=== PATIENT | female | born 1955 | race African-American/Black ===

== ENCOUNTER 2021-07-30 00:24 | Inpatient (IN) | payer MEDICARE, OTHER ==
[~2021-07-30] VITALS: Ht 170.2 cm; Wt 33.1 kg
[2021-07-30 02:37] LABS: INR 1.23 (0.9-1.15); Partial Thromboplastin Time 42.6 sec (23.6-33.0)
[2021-07-30 02:45] LABS: Albumin 1.7 g/dL (3.4-5.0); Anion Gap 21 (5-15); Calcium 7.4 mg/dL (8.5-10.1); Carbon Dioxide 12 mmol/L (21-32); Chloride 101 mmol/L (98-107); Glucose 239 mg/dL (74-106); Potassium 5.2 mmol/L (3.5-5.1); Sodium 134 mmol/L (136-145)
[2021-07-30 02:49] LABS: Alanine Aminotransferase 270 U/L (13-56); Aspartate Aminotransferase 309 U/L (15-37); BUN/Creatinine Ratio 29.7; Blood Alcohol < 3.0 mg/dL (0-5); GFR African American 7 mL/min; GFR Non-African American 6 mL/min; Total Protein 5.3 g/dL (6.4-8.2)
[2021-07-30 03:31] LABS: Hematocrit 12.4 % (36.0-46.0); Mean Corpuscular Hemoglobin 34.9 pg (28.0-32.0); Mean Corpuscular Volume 108.9 fL (80.0-100.0); Red Blood Cells 1.13 10^6/uL (4.0-5.20); White Blood Cell 7.4 10^3/uL (4.4-10.8)
[2021-07-30 03:46] LABS: Alkaline Phosphatase 2651 U/L (45-117)
[2021-07-30 03:47] LABS: Bilirubin, Total 24.7 mg/dL (0.2-1.0)
[2021-07-30 03:50] LABS: Blood Urea Nitrogen 222 mg/dL (7-18)
[2021-07-30 03:51] LABS: Red Cell Distribution Width 21.8 % (11.8-14.3)
[2021-07-30 03:53] LABS: Basophils % (manual) 0 (0.0-2.0); Blast Cells 0; Eosinophils % (manual) 0 (0-7); Metamyelocytes % 0; Myelocytes % 0; Promyelocytes % 0; Reactive Lymphocytes 0
[2021-07-30] MEDS ORDERED: ACETAMINOPHEN 650 MG RECT SUPP PR PRN (06:00)
[2021-07-30] MEDS ORDERED: HYDROcodone-ACET 5/325MG TAB PO PRN (06:00)
[2021-07-30] MEDS ORDERED: DEXTROSE (50%) 50ML SYRG IV PRN ×2 (06:00→12:30)
[2021-07-30] MEDS: LACTULOSE 10g/15ml SOLN PR SCH ×2 (06:00→12:00)
[2021-07-30] MEDS ORDERED: MORPHINE SULFATE 4 MG/ML SYR/VIAL IV PRN (06:00)
[2021-07-30] MEDS ORDERED: SODIUM CHLORIDE 0.9% 1,000 ML IV SCH ×2 (06:00→12:30)
[2021-07-30] MEDS ORDERED: ONDANSETRON HCL 4 MG/2 ML VIAL IV PRN ×2 (06:00→12:30)
[2021-07-30 06:29] LABS: Alanine Aminotransferase 262 U/L (13-56); Albumin 1.7 g/dL (3.4-5.0); Anion Gap 20 (5-15); Calcium 7.4 mg/dL (8.5-10.1); Carbon Dioxide 12 mmol/L (21-32); Chloride 103 mmol/L (98-107); Glucose 250 mg/dL (74-106); Potassium 5.1 mmol/L (3.5-5.1); Sodium 135 mmol/L (136-145)
[2021-07-30 06:30] LABS: Hematocrit 13.2 % (36.0-46.0); Mean Corpuscular Hemoglobin 35.6 pg (28.0-32.0); Mean Corpuscular Hgb Conc. 30.9 g/dL (32.0-36.0); Mean Corpuscular Volume 114.9 fL (80.0-100.0); Red Blood Cells 1.15 10^6/uL (4.0-5.20); White Blood Cell 7.4 10^3/uL (4.4-10.8)
[2021-07-30 06:32] LABS: Aspartate Aminotransferase 285 U/L (15-37); BUN/Creatinine Ratio 28.6; GFR African American 7 mL/min; GFR Non-African American 6 mL/min; Total Protein 5.2 g/dL (6.4-8.2)
[2021-07-30 06:47] LABS: Red Cell Distribution Width 22.6 % (11.8-14.3)
[2021-07-30 07:01] LABS: Alkaline Phosphatase > 2330 U/L (45-117); Bilirubin, Total 24.5 mg/dL (0.2-1.0)
[2021-07-30 07:07] LABS: Blood Urea Nitrogen 216 mg/dL (7-18)
[2021-07-30 07:18] LABS: Basophils % (manual) 0 (0.0-2.0); Blast Cells 0; Eosinophils % (manual) 0 (0-7); Hemoglobin 4.1 g/dL (12.2-16.2); Metamyelocytes % 0; Myelocytes % 0; Promyelocytes % 0; Reactive Lymphocytes 0
[2021-07-30 08:11] LABS: Band Neutrophils % (manual) 3; Lymphocytes % (manual) 6 (10.0-50.0); Monocytes % (manual) 2 (0-12)
[2021-07-30 08:45] VITALS: BP 109/55
[2021-07-30 09:00] VITALS: BP 120/63
[2021-07-30 09:11] LABS: Urine Bacteria FEW /hpf (None Seen); Urine Blood 1+ /uL (Negative); Urine Mucus MANY (None Seen); Urine Specific Gravity 1.016 (1.001-1.035); Urine WBC 1159 /hpf (0 - 5); Urine WBC Clumps PRESENT /hpf (None Seen)
[2021-07-30 09:25] LABS: Amphetamine Screen, Urine NEGATIVE (NEGATIVE); Barbiturate Scree,Urine NEGATIVE (NEGATIVE); Benzodiazephine Screen, Urine NEGATIVE (NEGATIVE); Cannabinoid Screen, Urine NEGATIVE (NEGATIVE); Cocaine Screen, Urine NEGATIVE (NEGATIVE); Opiate Scree,Urine NEGATIVE (NEGATIVE); Phencyclidine Screen, Urine NEGATIVE (NEGATIVE)
[2021-07-30 09:31] LABS: Alcohol, Urine < 3.0 mg/dL (0-10)
[2021-07-30] MEDS ORDERED: FAMOTIDINE (10MG/ML) 2ML VL IV SCH (10:00)
[2021-07-30] MEDS: ACCU-CHEK COMFORT CURVE STRIP VI SCH ×4 (10:15→22:00)
[2021-07-30] MEDS: InsuLIN REG 1unit/0.01ml Soln (100units/ml) SC SCH ×4 (10:23→22:00)
[2021-07-30] MEDS: FAMOTIDINE (10MG/ML) 2ML VL IV SCH (10:23)
[2021-07-30 10:28] VITALS: BP 114/59
[2021-07-30 11:43] LABS: Hemoglobin 7.6 g/dL (12.2-16.2); White Blood Cell 6.5 10^3/uL (4.4-10.8)
[2021-07-30 11:45] LABS: Hematocrit 22.4 % (36.0-46.0); Mean Corpuscular Hemoglobin 32.9 pg (28.0-32.0); Mean Corpuscular Volume 96.8 fL (80.0-100.0); Red Blood Cells 2.31 10^6/uL (4.0-5.20); Red Cell Distribution Width 19.7 % (11.8-14.3)
[2021-07-30 11:56] LABS: Band Neutrophils % (manual) 1; Lymphocytes % (manual) 5 (10.0-50.0); Monocytes % (manual) 4 (0-12)
[2021-07-30 11:57] LABS: Basophils % (manual) 0 (0.0-2.0); Blast Cells 0; Eosinophils % (manual) 0 (0-7); Metamyelocytes % 0; Myelocytes % 0; Promyelocytes % 0; Reactive Lymphocytes 0
[2021-07-30 12:04] LABS: Chloride 105 mmol/L (98-107); Potassium 4.8 mmol/L (3.5-5.1); Sodium 135 mmol/L (136-145)
[2021-07-30 12:14] LABS: Alanine Aminotransferase 250 U/L (13-56); Albumin 1.7 g/dL (3.4-5.0); Anion Gap 19 (5-15); Aspartate Aminotransferase 273 U/L (15-37); BUN/Creatinine Ratio 29.1; Bilirubin, Total 23.3 mg/dL (0.2-1.0); Calcium 7.1 mg/dL (8.5-10.1); Carbon Dioxide 11 mmol/L (21-32); GFR African American 7 mL/min; GFR Non-African American 6 mL/min; Glucose 236 mg/dL (74-106); Total Protein 5.1 g/dL (6.4-8.2)
[2021-07-30 12:15] LABS: Band Neutrophils % (manual) 3; Lymphocytes % (manual) 8 (10.0-50.0); Monocytes % (manual) 2 (0-12)
[2021-07-30] MEDS ORDERED: cefTRIAXone 1GM/50ML D5W 50 ML IV ONE (12:30)
[2021-07-30] MEDS ORDERED: NALBUPHINE HCL 10 MG/1ml INJECTION IV PRN (12:30)
[2021-07-30] MEDS ORDERED: MORPHINE SULFATE INJECTION 2 MG/ML SYRG IV PRN (12:30)
[2021-07-30] MEDS ORDERED: LACTULOSE 10g/15ml SOLN PR ONE (12:30)
[2021-07-30] MEDS ORDERED: PANTOPRAZOLE 40 MG/10 ML VIAL INJ IV ONE ×2 (12:30→14:15)
[2021-07-30] MEDS ORDERED: NITROGLYCERIN 0.4 MG SL TAB SL PRN (12:30)
[2021-07-30 12:35] LABS: Blood Urea Nitrogen 211 mg/dL (7-18)
[2021-07-30 12:44] LABS: Alkaline Phosphatase > 2330 U/L (45-117)
[2021-07-30 12:53] LABS: Amylase 54 U/L (25-115); Lipase 527 U/L (73-393)
[2021-07-30 13:31] LABS: Protein, Urine 89.9 mg/dL (0.0-11.9)
[2021-07-30] MEDS: ALBUMIN 25% 100 ML IV SCH ×2 (13:57→20:30)
[2021-07-30] MEDS: SODIUM BICARBONATE 50ML VIAL 50 ML in SOD CHL 0.45% 1,000 ML IV SCH ×2 (13:57→21:24)
[2021-07-30] MEDS: DOPamine 1600MCG/ML D5W 250 ML IV SCH (13:59)
[2021-07-30] MEDS: metroNIDAZOLE 500MG/100ML 100 ML IV SCH ×2 (14:58→21:29)
[2021-07-30] MEDS: OCTREOTIDE ACETATE 100 MCG/ML VL SUBCUT SCH ×2 (14:58→21:42)
[2021-07-30] MEDS ORDERED: LACTULOSE 20Gm/30ML SOLN PO ONE (15:15)
[2021-07-30 17:45] LABS: Hematocrit 22.9 % (36.0-46.0); Hemoglobin 7.5 g/dL (12.2-16.2)
[2021-07-30] MEDS: NOREPINEPHRINE 8 MG/250ML KIT 250 ML IV SCH (18:00)
[2021-07-30] MEDS ORDERED: NOREPINEPHRINE 8 MG/250ML KIT 250 ML IV ONE (18:00)
[2021-07-30] MEDS ORDERED: SODIUM CHLORIDE 0.9% 2,200 ML IV ONE (18:30)
[2021-07-30] MEDS: LACTULOSE 20Gm/30ML SOLN PO SCH (21:41)
[2021-07-31] VITALS (12 sets, daily range): BP systolic 112–146; BP diastolic 59–66
[2021-07-31 00:54] LABS: Hematocrit 19.1 % (36.0-46.0)
[2021-07-31 01:00] LABS: Hemoglobin 6.6 g/dL (12.2-16.2)
[2021-07-31] MEDS: ALBUMIN 25% 100 ML IV SCH (04:40)
[2021-07-31] MEDS ORDERED: SODIUM BICARBONATE 8.4% INJ 50ML SYRINGE ONE ×2 (04:44→13:03)
[2021-07-31] MEDS: SODIUM BICARBONATE 50ML VIAL 50 ML in SOD CHL 0.45% 1,000 ML IV SCH (05:30)
[2021-07-31] MEDS: metroNIDAZOLE 500MG/100ML 100 ML IV SCH ×3 (05:33→22:20)
[2021-07-31] MEDS: OCTREOTIDE ACETATE 100 MCG/ML VL SUBCUT SCH ×4 (05:33→22:05)
[2021-07-31] MEDS: InsuLIN REG 1unit/0.01ml Soln (100units/ml) SC SCH ×4 (06:06→22:00)
[2021-07-31] MEDS: ACCU-CHEK COMFORT CURVE STRIP VI SCH ×4 (06:06→22:00)
[2021-07-31 07:40] LABS: Hemoglobin 9.4 g/dL (12.2-16.2); Mean Corpuscular Hemoglobin 32.5 pg (28.0-32.0); Mean Corpuscular Hgb Conc. 34.7 g/dL (32.0-36.0); Mean Corpuscular Volume 93.4 fL (80.0-100.0); Red Blood Cells 2.89 10^6/uL (4.0-5.20); Red Cell Distribution Width 16.8 % (11.8-14.3); White Blood Cell 8.6 10^3/uL (4.4-10.8)
[2021-07-31 07:49] LABS: Albumin 2.4 g/dL (3.4-5.0); Potassium 4.5 mmol/L (3.5-5.1)
[2021-07-31 07:50] LABS: INR 1.29 (0.9-1.15); Partial Thromboplastin Time 52.7 sec (23.6-33.0)
[2021-07-31 07:52] LABS: BUN/Creatinine Ratio 27.8; Bilirubin, Total 20.6 mg/dL (0.2-1.0); Total Protein 4.9 g/dL (6.4-8.2)
[2021-07-31 07:53] LABS: Basophils % (manual) 0 (0.0-2.0); Blast Cells 0; Eosinophils % (manual) 0 (0-7); Metamyelocytes % 0; Myelocytes % 0; Promyelocytes % 0; Reactive Lymphocytes 0
[2021-07-31] MEDS ORDERED: ETOMIDATE (2MG/ML) 20ML VIAL IV ONE ×2 (07:58→08:30)
[2021-07-31] MEDS ORDERED: MIDAZOLAM DRIP 50 mg/50mL 50 ML IV ONE (07:59)
[2021-07-31] MEDS ORDERED: SUCCINYLCHOLINE CHLORIDE 20 MG/ML 10ML VIAL IV ONE ×2 (07:59→08:30)
[2021-07-31] MEDS: MIDAZOLAM DRIP 50 mg/50mL 50 ML IV SCH ×4 (08:10→23:50)
[2021-07-31 08:47] LABS: Calcium 5.7 mg/dL (8.5-10.1)
[2021-07-31] MEDS: cefTRIAXone 1GM/50ML D5W 50 ML IV SCH (09:00)
[2021-07-31] MEDS ORDERED: fentaNYL Drip 2500mCg/250mlNS 250 ML IV SCH (09:30)
[2021-07-31] MEDS: PANTOPRAZOLE 40 MG/10 ML VIAL INJ IV SCH (10:00)
[2021-07-31] MEDS: LACTULOSE 20Gm/30ML SOLN PO SCH ×2 (10:00→22:02)
[2021-07-31] MEDS ORDERED: CALCIUM GLUC 1,000mg/50ml-NS 50 ML IV ONE (11:15)
[2021-07-31 11:53] LABS: Band Neutrophils % (manual) 3; Lymphocytes % (manual) 6 (10.0-50.0); Monocytes % (manual) 2 (0-12)
[2021-07-31] MEDS ORDERED: SODIUM BICARBONATE 8.4 % INJ 50ML VIAL IV ONE (12:15)
[2021-07-31 13:09] LABS: Hepatitis C Antibody Negative (Negative)
[2021-07-31] MEDS: DOPamine 1600MCG/ML D5W 250 ML IV SCH (13:14)
[2021-07-31] MEDS: SODIUM BICARBONATE 50ML VIAL 150 ML in D5W 5% 1,000 ML IV SCH ×2 (14:53→17:01)
[2021-07-31] MEDS: NOREPINEPHRINE 8 MG/250ML KIT 250 ML IV SCH (18:00)
[2021-08-01 02:21] VITALS: BP 105/60
[2021-08-01] MEDS: SODIUM BICARBONATE 50ML VIAL 150 ML in D5W 5% 1,000 ML IV SCH ×2 (03:30→09:45)
[2021-08-01] MEDS: metroNIDAZOLE 500MG/100ML 100 ML IV SCH (05:24)
[2021-08-01] MEDS: OCTREOTIDE ACETATE 100 MCG/ML VL SUBCUT SCH (05:28)
[2021-08-01] MEDS: MIDAZOLAM DRIP 50 mg/50mL 50 ML IV SCH ×2 (06:21→09:44)
[2021-08-01] MEDS: InsuLIN REG 1unit/0.01ml Soln (100units/ml) SC SCH ×2 (06:27→12:01)
[2021-08-01] MEDS: ACCU-CHEK COMFORT CURVE STRIP VI SCH ×2 (06:27→12:02)
[2021-08-01 06:50] LABS: Hematocrit 23.1 % (36.0-46.0); Hemoglobin 8.1 g/dL (12.2-16.2); Mean Corpuscular Hemoglobin 31.7 pg (28.0-32.0); Mean Corpuscular Hgb Conc. 35.2 g/dL (32.0-36.0); Mean Corpuscular Volume 90.1 fL (80.0-100.0); Red Blood Cells 2.56 10^6/uL (4.0-5.20); Red Cell Distribution Width 17.1 % (11.8-14.3); White Blood Cell 4.6 10^3/uL (4.4-10.8)
[2021-08-01 06:55] LABS: Basophils % (manual) 0 (0.0-2.0); Blast Cells 0; Metamyelocytes % 0; Myelocytes % 0; Promyelocytes % 0; Reactive Lymphocytes 0
[2021-08-01 07:00] VITALS: BP 97/56
[2021-08-01 07:04] LABS: Potassium 3.1 mmol/L (3.5-5.1)
[2021-08-01 07:06] LABS: BUN/Creatinine Ratio 26.5
[2021-08-01 09:00] VITALS: BP 112/53
[2021-08-01] MEDS: cefTRIAXone 1GM/50ML D5W 50 ML IV SCH (09:42)
[2021-08-01] MEDS: PANTOPRAZOLE 40 MG/10 ML VIAL INJ IV SCH (09:44)
[2021-08-01] MEDS: FAMOTIDINE (10MG/ML) 2ML VL IV SCH (09:44)
[2021-08-01] MEDS: LACTULOSE 20Gm/30ML SOLN PO SCH (09:44)
[2021-08-01] MEDS: DOPamine 1600MCG/ML D5W 250 ML IV SCH (09:45)
[2021-08-01 11:00] VITALS: BP 93/52
[2021-08-01 12:59] LABS: Band Neutrophils % (manual) 3; Eosinophils % (manual) 2 (0-7); Lymphocytes % (manual) 11 (10.0-50.0); Monocytes % (manual) 6 (0-12)
[2021-08-01 13:00] VITALS: BP 89/51
[2021-08-01] MEDS ORDERED: LORazepam 2MG/ML-1ML VIAL IV PRN (14:30)
[2021-08-01] MEDS ORDERED: MORPHINE SULFATE INJECTION 2 MG/ML SYRG IV PRN (14:30)
[2021-08-01 15:01] VITALS: BP 93/50
== END 2021-08-01 23:50 | DRG 871 ==
LOC: EDBD 00:24 → EDSEX 00:24 → ER 00:24 → TELE 12:21 → TELE-WESTW 08-01 21:45 → WEST WING 08-01 23:44
PROVIDERS: ADMIT Internal Medicine; ATTEND Internal Medicine Pulmonary Disease
PROC: 30233N1 Transfusion of Nonautologous Red Blood Cells into Peripheral Vein, Percutaneous Approach (ICD-10-PCS; 2021-07-30)
PROC: 0BH17EZ Insertion of Endotracheal Airway into Trachea, Via Natural or Artificial Opening (ICD-10-PCS; principal; 2021-07-31)
PROC: 5A1945Z Respiratory Ventilation, 24-96 Consecutive Hours (ICD-10-PCS; 2021-07-31)
PROC: 06HY33Z Insertion of Infusion Device into Lower Vein, Percutaneous Approach (ICD-10-PCS; 2021-07-31)
DX: A41.9 Sepsis, unspecified organism (principal); K76.7 Hepatorenal syndrome; J96.01 Acute respiratory failure with hypoxia; N17.0 Acute kidney failure with tubular necrosis; E43 Unspecified severe protein-calorie malnutrition; N18.6 End stage renal disease; R65.21 Severe sepsis with septic shock; K83.1 Obstruction of bile duct; D68.9 Coagulation defect, unspecified; C24.9 Malignant neoplasm of biliary tract, unspecified; K92.2 Gastrointestinal hemorrhage, unspecified; N39.0 Urinary tract infection, site not specified; D62 Acute posthemorrhagic anemia; G93.49 Other encephalopathy; Z68.1 Body mass index [BMI] 19.9 or less, adult; Z66 Do not resuscitate; E11.22 Type 2 diabetes mellitus with diabetic chronic kidney disease; K72.90 Hepatic failure, unspecified without coma; E88.09 Other disorders of plasma-protein metabolism, not elsewhere classified; Z53.29 Procedure and treatment not carried out because of patient's decision for other reasons; E87.5 Hyperkalemia; R31.9 Hematuria, unspecified; Z20.822 Contact with and (suspected) exposure to COVID-19; Z96.89 Presence of other specified functional implants; Z91.048 Other nonmedicinal substance allergy status; Z91.15 Patient's noncompliance with renal dialysis; Z51.5 Encounter for palliative care; Z85.09 Personal history of malignant neoplasm of other digestive organs; Z79.899 Other long term (current) drug therapy
CPT/HCPCS: 31500; 36415; 36430; 36600; 70450; 71045; 74176; 76775; 78582; 80048; 80053; 80307; 80320; 81001; 82140; 82150; 82306; 82570; 82805; 82962; 83036; 83605; 83690; 83970; 84100; 84156; 84300; 84484; 85007; 85014; 85018; 85027; 85045; 85379; 85610; 85730; 86803; 86850; 86900; 86901; 86920; 87040; 87070; 87077; 87086; 87186; 87205; 87340; 87426; 94002; 94003; 96361; 96365; 96375; C9113; G0378; J0330; J0696; J1815; J2250; J3490; P9047